=== PATIENT | male | born 1990 | race Hispanic/Latino ===

== ENCOUNTER 2020-10-26 23:57 | Observation (INO) | payer BC ==
[~2020-10-26] VITALS: Ht 172.7 cm; Wt 73.9 kg
[2020-10-27] VITALS (9 sets, daily range): BP systolic 108–147; BP diastolic 65–83
--- NOTE | 2020-10-27 00:33 | NUR ---
LABS COLLECTED, PATIENT STATES UNABLE TO PROVIDE URINE SAMPLE AT [facility], IV FLUIDS RUNNING, FAMILY AT BEDSIDE.
[2020-10-27 01:01] LABS: HEMATOCRIT 48.2 % (39.0-50.0); HEMOGLOBIN 17.1 g/dl (14.0-18.0); IMMATURE GRANULOCYTES 0.6 % (0.0-5.0); MEAN CELL VOLUME 91.3 fL CALC (80.0-100.0); MEAN CORPUSCULAR HGB 32.4 pG CALC (26.0-32.0); MEAN CORPUSCULAR HGB CONC 35.5 g/dL CAL (32.0-36.0); NEUT# 11.81 thou/uL (1.82-7.42); RED BLOOD COUNT 5.28 mill/uL (4.70-6.10); RED CELL DISTRI WIDTH 12.6 % (11.5-15.5)
--- NOTE | 2020-10-27 01:09 | NUR ---
PATIENT AGAIN DENIES ABILITY TO PROVIDE URINE SAMPLE, AWAITING CT
[2020-10-27 01:14] LABS: ALBUMIN 4.2 g/dL (3.2-5.0); ALKALINE PHOSPHATASE 79 u/l (38-126); AMYLASE 68 u/l (30-110); ANION GAP 10 (6-22 (CALC)); BILIRUBIN, TOTAL 0.7 mg/dL (0.0-1.4); BUN 17 mg/dL (9-20); BUN/CREATININE RATIO 17 (12-20 (CALC)); CARBON DIOXIDE 29 mmol/l (22-30); CHLORIDE 104 mmol/l (95-108); GFR > 60 ML/MIN (>=60 (CALC)); GFR FOR AFR.AMER. > 60 ML/MIN (>=60 (CALC)); LIPASE 34 u/l (23-300); POTASSIUM 3.7 mmol/l (3.5-5.1); SGOT/AST 15 u/l (17-59); SODIUM 139 mmol/l (137-146); TOTAL PROTEIN 6.8 g/dL (6.3-8.2)
[2020-10-27 01:28] LABS: URINE BILIRUBIN - DIPSTICK NEGATIVE (NEGATIVE); URINE BLOOD DIPSTICK NEGATIVE (NEGATIVE); URINE COLOR YELLOW; URINE GLUCOSE - DIPSTICK NEGATIVE (NEGATIVE); URINE KETONE NEGATIVE (NEGATIVE); URINE PH 6.5 (4.5-8.0); URINE PROTEIN - DIPSTICK NEGATIVE (NEG-TRACE); URINE UROBILINOGEN - DIPSTICK 0.2 E.U./dL (0.2)
[2020-10-27 01:31] LABS: URINE LEUK ESTERASE NEGATIVE (NEGATIVE); URINE NITRITE - DIPSTICK POSITIVE (Negative)
[2020-10-27 01:46] LABS: URINE EPITHELIAL CELLS FEW EPI/hpf (0-FEW); URINE RBC 0-2 RBC/hpf (0-5)
[2020-10-27 01:47] LABS: URINE BACTERIA MANY hpf
--- NOTE | 2020-10-27 02:05 | NUR ---
ABT TREATMENT STARTED, PATIENT AWAKE AND ALERT, NO C/O PAIN OR DISCOMFORT, NO S/S OF DISTRESS NOTED, RESPIRATIONS EVEN AND UNLABORED, AWAITING DIAGNOSTIC RESULTS.
--- NOTE | 2020-10-27 03:14 | NUR ---
HAND OFF REPORT GIVEN TO SALIMA
--- NOTE | 2020-10-27 03:14 | NUR ---
PATIENT TO INPATIENT TREATMENT ROOM 261
--- NOTE | 2020-10-27 03:20 | NUR ---
PT ARRIVED TO MED SURG UNIT VIA WC ACCOMPANIED BY ED NURSE. PT APPEARS STABLE AT THIS TIME. PT ORIENTED TO ROOM, CALL SYSTEM, LIGHTS, TV AND BED. MOUTH SWABS PROVIDED FOR COMFORT ALONG WITH LIP BALM. PT DENIES ANY OTHER NEEDS AT THIS TIME.
--- NOTE | 2020-10-27 03:52 | NUR ---
PT ASSESSMENT AND ADMISSION QUESTIONS COMPLETED AT THIS TIME. DENIES PAIN/N/V/D AT THIS TIME.
--- NOTE | 2020-10-27 07:23 | NUR ---
PATIENT IN BED AT THIS TIME DENIES ANY NEEDS STATES HAVING NO PAIN. ALL SAFETY MEASURES IN PLACE CALL LIGHT NEAR. PATIENT REMAINS NPO FOR POSSIBLE SUREGRY
--- NOTE | 2020-10-27 08:00 | NUR ---
PATIENT CONSENT OBTAINED AT THIS TIME DR. LAGUERRE IN TO SEE SEMAJ TO EXPLAIN SURGERY FOR LAP CHHOLE AT AND PATIENT AGREED.
--- NOTE | 2020-10-27 09:30 | NUR ---
SURGERY NURSE UP ON FLOOR TO TAKE PATIENT TO SURGERY AT THIS TIME.
--- NOTE | 2020-10-27 12:10 | NUR ---
PATIENT RETURNED FROM SURGERY AT THIS TIME. PATIENT ALERT AND ORIENTED AT THIS TIME ABDOMEN HAS 4 DERMA-KRISHNAMURTHY SITES INTACT. PATIENT STATES HIS PAIN IS A 3 AND SURGEY NURSE JOE STATED HE HAS BEEN PREVIOUSLY MEDICATED FOR PAIN AT 11:38 WITH 1MG OF DILAUDID. VITAL SIGNS ARE STABLE AT THIS TIME.
--- NOTE | 2020-10-27 16:00 | NUR ---
PATIENT RESTING IN BED CURRENTLY, FOUR DERMA KRISHNAMURTHY SITES ARE INTACT AND NO DRAINAGE NOTED. CALL LIGHT WITH IN REACH. STATES PAIN LEVEL IS STILL A 3 AT THIS TIME AND IS TOLERABLE. SIDERAILS UP X 2 PATIENT EATING AND DRINKING FLUIDS AND URINATING WITHOUT ISSUE.
--- NOTE | 2020-10-27 17:11 | NUR ---
PATIENT D/C AT THIS TIME PATIENT VERBALIZES UNDERSTANDING OF D/C INSTRUCITONS. AT THIS TIME PATIENT IN STABLE CONDITION 4 DERMABOND SITES DRY AND INTACT. PATIENT GIVEN A WORK EXCUSE FROM 10/27 TO 11/06 AND CAN RETURN TO WORK ON 11/07 AND NO HEAVY LIFTING GREATER THAN 15LBS.
--- NOTE | 2020-10-27 17:14 | NUR ---
Discharge instructions given. Patient verbalizes understanding of same. Discharged in stable condition via Wheelchair to Home with family. All belongings sent with pt.
== END 2020-10-27 17:14 | disposition home or self-care (01) | DRG 419 ==
LOC: ED 23:57 → ED-I 10-27 02:23 → ED 10-27 02:37 → MS2 10-27 02:38
PROVIDERS: Emergency Medicine; ADMIT Surgery; ATTEND Surgery
PROC: 0FT44ZZ Resection of Gallbladder, Percutaneous Endoscopic Approach (ICD-10-PCS; principal; 2020-10-27)
DX: K80.12 Calculus of gallbladder with acute and chronic cholecystitis without obstruction (principal); Z20.828 Contact with and (suspected) exposure to other viral communicable diseases
CPT/HCPCS: G0378; J0131; J2710; Q9967